=== PATIENT | female | born 1950 ===

== ENCOUNTER 2017-03-30 13:17 | Emergency (ER) | payer MEDICARE ==
[2017-03-30 13:17] VITALS: BMI 27.0
[2017-03-30 13:22] VITALS: O2SAT 100
[2017-03-30 13:50] VITALS: RESP 17
--- NOTE | 2017-03-30 14:22 | C.PDOC ---
Time Seen by Provider: 03/30/17 13:26 Chief Complaint (Nursing): Dizziness/Lightheaded History Per: Patient, Family Onset/Duration Of Symptoms: Hrs (since waking up this morning), Intermittent Episodes Current Symptoms Are (Timing): Still Present Associated Symptoms Preceding Syncopal Episode: Vertigo Worse With Change In Head Position Seizure Or Post-ictal Symptoms: None Possible Causative Factor(s): Vertigo Fall Associated With With Symptoms: No Severity: Moderate Additional History Per: Prior Records - Symptoms Of CVA Associated Symptoms: denies: Impaired Speech, Seizure Activity, New Vision Deficit(Left), New Vision Deficit(Right), Decreased Ability To Walk, New Confusion Recent Head Trauma: No Past Medical History Reviewed: Historical Data, Nursing Documentation, Vital Signs Vital Signs: Last Vital Signs Temp 97.4 F L 03/30/17 13:20 Pulse 73 03/30/17 13:49 Resp 17 03/30/17 13:49 BP 146/84 03/30/17 13:49 Pulse Ox 100 03/30/17 14:22 - Medical History PMH: Colonic Polyps, Hypercholesterolemia, Hypothyroidism Surgical History: No Surg Hx - [facility] Procedures ENDOSC POLYPECTOMY OF LG INTEST (05/18/15) Family History: States: Unknown Family Hx - Social History Hx Tobacco Use: No Hx Alcohol Use: No Hx Substance Use: No - Immunization History Hx Tetanus Toxoid Vaccination: No Hx Influenza Vaccination: No Hx Pneumococcal Vaccination: No Review Of Systems Except As Marked, All Systems Reviewed And Found Negative. Constitutional: Negative for: Fever, Weakness Eyes: Negative for: Vision Change ENT: Negative for: Ear Pain, Ear Discharge Cardiovascular: Negative for: Chest Pain Respiratory: Negative for: Shortness of Breath Gastrointestinal: Positive for: Nausea. Negative for: Vomiting, Abdominal Pain Musculoskeletal: Negative for: Neck Pain, Back Pain Skin: Negative for: Rash Neurological: Positive for: Dizziness. Negative for: Weakness, Numbness, Change in Speech, Confusion, Seizures, Altered Mental Status, Headache Physical Exam - Physical Exam Appears: Non-toxic, No Acute Distress Skin: Normal Color, Warm, Dry, No Rash Head: Atraumatic, Normacephalic Eye(s): bilateral: Normal Inspection, PERRL, EOMI Ear(s): Bilateral: Normal Neck: Normal ROM, Supple Cardiovascular: Rhythm Regular Respiratory: Normal Breath Sounds, No Accessory Muscle Use Gastrointestinal/Abdominal: Soft, No Tenderness Extremity: Normal ROM Neurological/Psych: Oriented x3, Normal Speech, Normal Cognition, Normal Cranial Nerves, No Cerebellar Signs, Normal Motor, Normal Sensation ED Course And Treatment O2 Sat by Pulse Oximetry: 100 Pulse Ox Interpretation: Normal Progress Note: Dizziness goes away when head is still and returns with movement. Pt feels much better after Meclizine and wants go to home. Steady gait. Reassessment Condition: Improved Disposition Counseled Patient/Family Regarding: Diagnosis, Need For Followup, Rx Given - Disposition Referrals: John Magdaleno MD [Medical Doctor] - Disposition: HOME/ ROUTINE Disposition Time: 14:30 Condition: IMPROVED Additional Instructions: Follow up with your doctor within 2-3 days. Follow up with and ENT doctor if problem is recurrent. Return to the ER if you develop weakness, numbness, trouble seeing, walking or talking, vomiting, pass out, worsening of symptoms or if you have any other concerns. Prescriptions: Meclizine [Meclizine*] 25 mg PO Q6 PRN #30 tab PRN Reason: Dizziness Instructions: Vertigo (ED) Print Language: [place]ESE - Clinical Impression Clinical Impression: Positional vertigo
[2017-03-30 14:44] VITALS: BP 127/62; PULSE 63; TEMP 97.8
== END 2017-03-30 14:43 | disposition home or self-care (01) ==
LOC: C.ER 13:17
DX: H81.10 Benign paroxysmal vertigo, unspecified ear (principal)